=== PATIENT | female | born 1980 | race Caucasian/White ===

== ENCOUNTER 2024-01-03 10:29 | Observation (INO) ==
--- NOTE | 2023-12-13 09:06 | PAT Medication Instructions ---
Medication Instructions Date of Service December 13, 2023 Home Medications Medication Instructions Recorded cefdinir 300 mg capsule 300 mg PO BID 7 days #14 caps 12/08/23 albuterol sulfate 90 mcg/actuation aerosol inhaler 2 puff inhalation DIRECTE D PRN hydroxyzine HCl 10 mg tablet 10 mg PO TID PRN montelukast 10 mg tablet 10 mg PO QAM nitroglycerin 0.4 mg sublingual tablet 0.4 mg sublingual DIRECTED PRN omeprazole 40 mg capsule,delayed release 40 mg PO QAM tiotropium bromide 2.5 mcg/actuation mist for inhalation (Spiriva Respimat) 2 inh inhalation DAILY fluticasone 500 mcg-salmeterol 50 mcg/dose blistr powdr for inhalation (Advair Diskus) 1 inh inhalation BID naproxen sodium 220 mg tablet (Aleve) 440 mg PO DIRECTED PRN cefdinir 300 mg capsule 300 mg PO BID Thc Gummies 1 dose PO BID cyclobenzaprine 5 mg tablet 5 mg PO TID hydrocodone 7.5 mg-acetaminophen 325 mg tablet 1 tab PO TID Continue as directed tiotropium bromide 2.5 mcg/actuation mist for inhalation (Spiriva Respimat) 2 inh inhalation DAILY nitroglycerin 0.4 mg sublingual tablet 0.4 mg sublingual DIRECTED PRN(if needed) ASK your surgeon for instructions naproxen sodium 220 mg tablet (Aleve) 440 mg PO DIRECTED PRN STOP taking 24 hours before surgery Thc Gummies 1 dose PO BID Take morning of surgery With a small sip of water, OTHERWISE NOTHING TO EAT OR DRINK AFTER MIDNIGHT: albuterol sulfate 90 mcg/actuation aerosol inhaler 2 puff inhalation DIRECTED PRN(use if needed; please bring with you to hospital day of surgery if possible) hydroxyzine HCl 10 mg tablet 10 mg PO TID PRN(if needed) montelukast 10 mg tablet 10 mg PO QAM omeprazole 40 mg capsule,delayed release 40 mg PO QAM fluticasone 500 mcg-salmeterol 50 mcg/dose blistr powdr for inhalation (Advair Diskus) 1 inh inhalation BID cefdinir 300 mg capsule 300 mg PO BID cyclobenzaprine 5 mg tablet 5 mg PO TID hydrocodone 7.5 mg-acetaminophen 325 mg tablet 1 tab PO TID Take evening before surgery hydroxyzine HCl 10 mg tablet 10 mg PO TID PRN(if needed) fluticasone 500 mcg-salmeterol 50 mcg/dose blistr powdr for inhalation (Advair Diskus) 1 inh inhalation BID cefdinir 300 mg capsule 300 mg PO BID cyclobenzaprine 5 mg tablet 5 mg PO TID hydrocodone 7.5 mg-acetaminophen 325 mg tablet 1 tab PO TID Other Notes If you have any questions please call us at [phone] or [phone] or [phone] or [phone]
--- NOTE | 2023-12-15 14:42 | Anesthesiology Consultation ---
Date of Service December 15, 2023 Assessment & Plan (1) Encounter for pre-operative examination: - Check test AM DOS - Infectious disease screening: Per assessment on 12/10/23: No known infectious disease contacts or current Covid-related symptoms. No noted recent Covid positive test result. - Outpatient joint assessment: Pt currently scheduled for inpatient pathway. If surgeon requests review for outpatient joint pathway, patient is not recommended candidate for outpatient joint program from anesthesia standpoint. - Last seen by PCP 09/24/23: " Bridget presents for followup of her chronic medical conditions. She reports she is compliant with her medications.. She notes since her last appt she injured her knee, has an MRI scheduled soon, is going to have surgery for her meniscus soon.. is following with my raissay carole/onch [sic] for iron transfusions. she is also having high wbc and platelets.. Asthma.. stable at this time. no active exacerbation.. continue current medications.. Hx of NSTEMI.. not currently on statin or any bp meds. labs ordered.. Hyperlipidemia.. Reviewed measures to lower cholesterol aside from medication.. Please decrease/eliminate fried foods and red meat" - Case (including past cardiac history) reviewed with Dr. Holbrook. He feels patient okay to proceed with surgery as scheduled without further cardiac evaluation and/or testing prior to surgery from his perspective. Chart Review Chart Review: Acceptable Risk for Surgery (pending evaluation DOS) and Patient seen in Pre Admission Testing Teaching & Discussion Pre-Anesthesia Teaching/Discussion Notes: Instructed NPO after midnight before surgery,except medications with 15 cc of water. Medication instructions provided according to the PAT guidelines. History Surgery Operation Date: 01/03/24 13:40 Proposed Procedures p Left Total Knee Arthroplasty - Mamadou Jasmine, Height/Weight Height: 5 ft 2 in Weight: 137.9 kg Allergies Allergy/AdvReac Type Severity Reaction Status Date / Time tramadol Allergy Severe Difficulty Verified 12/10/23 15:27 Breathing gabapentin AdvReac Intermediate Loss of Verified 12/13/23 15:15 balance pantoprazole [From Protonix] AdvReac Intermediate Hives Verified 12/10/23 15:27 NSAIDS (Non-Steroidal AdvReac Unknown Avoid d/t Verified 12/13/23 15:15 Anti-Inflamma gastric bypass Medications Home Medications Medication Instructions Recorded Confirmed Last Taken albuterol sulfate 90 mcg/actuation 2 puff inhalation DIRECTED PRN 09/26/22 12/10/23 Unknown aerosol inhaler Shortness Of Breath hydroxyzine HCl 10 mg tablet 10 mg PO TID PRN Itching 09/26/22 12/10/23 03/29/23 montelukast 10 mg tablet 10 mg PO QAM 09/26/22 12/10/23 03/29/23 nitroglycerin 0.4 mg sublingual 0.4 mg sublingual DIRECTED PRN 09/26/22 12/10/23 Unknown tablet Chest Pain omeprazole 40 mg capsule,delayed 40 mg PO QAM 09/26/22 12/10/23 03/29/23 release tiotropium bromide 2.5 2 inh inhalation DAILY 09/26/22 12/10/23 03/29/23 mcg/actuation mist for inhalation (Spiriva Respimat) fluticasone 500 mcg-salmeterol 50 1 inh inhalation BID 02/17/23 12/10/23 03/29/23 mcg/dose blistr powdr for inhalation (Advair Diskus) naproxen sodium 220 mg tablet 440 mg PO DIRECTED PRN Migraine 02/17/23 12/10/23 02/17/23 12:00 (Aleve) Headache Thc Gummies 1 dose PO BID 12/10/23 12/10/23 Unknown cyclobenzaprine 5 mg tablet 5 mg PO TID 12/10/23 12/10/23 Unknown hydrocodone 7.5 mg-acetaminophen 1 tab PO TID 12/10/23 12/10/23 Unknown 325 mg tablet Past Medical History Medical History Anxiety Arthritis Asthma Chronic anemia Chronic obstructive pulmonary disease Fibromyalgia GERD (gastroesophageal reflux disease) History of non-ST elevation myocardial infarction (NSTEMI) 2020 Cath 2020: Angiographically normal coronary arteries. Per report, "It is possible patient had a superficial plaque erosion. Given her symptoms and troponin elevation." Hx of gastric ulcer Hx pulmonary embolism s/p bariatric surgery (was on blood thinner for 2-3 months) Migraine Morbid obesity with BMI of 50.0-59.9, adult PTSD (post-traumatic stress disorder) Exercise / Class Metabolic Activity III < 4 Walking/Shop/Light housework (Patient reports no CP or SOB with daily flight of stairs) Past Family History Family History Other No family history of adverse response to anesthesia Past Surgical History Surgical History H/O gastric bypass History of x1 History of cardiac cath 2020 ([facility]) Angiographically normal coronary arteries. Per report, "It is possible patient had a superficial plaque erosion. Given her symptoms and troponin elevation." History of esophagogastroduodenoscopy (EGD) History of tooth extraction Past Anesthesia History No Family Hx of Anesthesia Complications and Other (EGD told she needed to "keep receiving more medication" to keep her asleep) History of PONV No Hx of PONV and Hx of Motion Sickness Social History Smoking Status: Current every day smoker Smoking cigarettes per day: 15-20 cigs/day Do You Dip or Chew Tobacco: No Hx Alcohol Use: No Hx Substance Use: Yes substance use type: marijuana (THC gummies 2-3 times/day PRN pain) Review of Systems Recent UTI 11/2023- symptom resolution s/p abx completion. Patient denies chest pain, shortness of breath, dyspnea on exertion, fever, chills, cough, wheezing, palpitations. Physical Exam Vital Signs VITALS BP 128/85 P 95 TEMP 98.2 SP02 95%RA RESP 20 PHYSICAL Full cervical extension range of motion. Full TMJ range of motion. TMD 3 finger breaths Mallampati Score 3 Dentition: upper/lower full dentures Lungs: clear throughout to auscultation Cardiac: regular rate and rhythm, no murmurs noted Spine: normal Carotid arteries: negative bruit Extremities: no LE edema Lab Results Anesthesia Preop Results Results Anesthesia Widget: WBC 10.16 K/ul (4.8-10.8) 12/15/23 Hgb 15.2 g/dl (12.0-16.0) 12/15/23 Hct 47.9 % (37.0-47.0) H 12/15/23 Plt 366 K/uL (130-400) 12/15/23 Na 136 mmol/L (136-145) 12/08/23 K 4.3 mmol/L (3.5-5.1) 12/08/23 Cl 102 mmol/L (98-107) 12/08/23 CO2 28 mmol/L (21-32) 12/08/23 BUN 8 mg/dl (6-23) 12/08/23 Creat 0.87 mg/dl (0.6-1.2) 12/08/23 Glucose Level 99 mg/dl (70-99(Fasting)) 12/08/23 PT 9.9 Seconds (9.0-12.0) 12/15/23 PTT 28 Seconds (21-31) 12/15/23 INR 0.9 (0.9-1.1) 12/15/23 Urine Color Yellow 12/08/23 Urine Appearance Cloudy (Clear) A 12/08/23 Urine pH 6.0 (4.5-7.5) 12/08/23 Urine Specific [place] 1.011 (1.000-1.030) 12/08/23 Urine Protein Negative (Negative) 12/08/23 Urine Glucose (UA) Negative (Negative) 12/08/23 Urine Ketones Negative (Negative) 12/08/23 Urine Blood 3+ (Negative) H 12/08/23 Urine Nitrite Negative (Negative) 12/08/23 Urine Bilirubin Negative (Negative) 12/08/23 Urine Urobilinogen Negative (Negative) 12/08/23 Urine Leukocyte Esterase Trace (Negative) H 12/08/23 Urine WBC (Auto) 10-30 /hpf (0-5) H 12/08/23 Urine RBC (Auto) 0-4 /hpf (0-4) 12/08/23 Urine Hyaline Casts (Auto) 1-5 /lpf (0-5) 12/08/23 Urine Epithelial Cells (Auto) >30 /lpf (0-5) H 12/08/23 Urine Bacteria (Auto) 1+ (Negative) H 12/08/23 Urine Yeast Not Reportable 12/08/23 Blood Type O Positive 12/15/23 Antibody Screen NEGATIVE 12/15/23 Testing Laboratory Results Urine culture (12/08/23)- more than three types of organisms present, all high counts > rx'd cefdinir by [facility] Electrocardiogram Date: 12/15/23 NSR at 87bpm. "Normal ECG" Chest X-Ray Date: 12/15/23 FINDINGS: No pneumothorax. No pleural effusions. The heart is normal in size. No evidence for pulmonary edema. Left basilar linear density favors subsegmental atelectasis or scarring. There are low lung volumes. There is suggestion of old, healed left-sided rib fractures. No acute fractures identified. IMPRESSION: No acute process. Echocardiogram Date: 12/12/20 EF 60-65%. Wall motion is normal. No significant valvular disease. Cardiac Catheterization Date: 12/12/20 Angiographically normal coronary arteries. It is possible patient had a superficial plaque erosion. Given her symptoms and troponin elevation. Recommendation: Aspirin and Plavix for 1 month. Discontinue Plavix after 30 days and continue aspirin lifelong. Patient should also be on a statin.
--- NOTE | 2024-01-03 09:57 | History & Physical Bridge Note ---
Date of Service January 03, 2024 History & Physical Bridge Note I have examined the patient, reviewed the History & Physical and in the interval since the performance of the History & Physical I have noted the following changes of clinical significance: no changes noted
[~2024-01-03 10:29] MED LIST: BUPIVACAINE 0.5 % 5 MG/1 ML PF 10ML VIAL ONE; ROPIVACAINE 0.5% 5 MG/ML 30 ML VIAL ONE
[2024-01-03] MEDS: LR 500ML BOLUS, THEN 15ML/HR IV SCH (11:02)
[2024-01-03] MEDS: dexAMETHasone**PF** 10 MG/ML VIAL IV SCH (11:03)
[2024-01-03] MEDS: FAMOTIDINE 20 MG TAB PO SCH (11:03)
[2024-01-03] MEDS: ACETAMINOPHEN 500 MG TAB PO SCH ×2 (11:03→20:50)
[2024-01-03] MEDS: GABAPENTIN 300 MG CAP PO SCH (11:04)
[2024-01-03] MEDS: LR 60ML/HR IV SCH (11:04)
[2024-01-03] MEDS ORDERED: MIDAZOLAM HCL 1 MG/ML 2ML VIAL ONE (11:21)
[2024-01-03] MEDS ORDERED: fentaNYL citrate PF 100 MCG/2 ML VIAL ONE ×4 (11:21→13:55)
[2024-01-03 11:27] LABS: Pregnancy Test, Serum Negative (Negative)
[2024-01-03] MEDS: TRANEXAMIC ACID 1,000 MG **IV Pre-op IV SCH (11:49)
[2024-01-03] MEDS ORDERED: SUCCINYLCHOLINE CHLORIDE 20 MG/ML 10 ML VIAL IV ONE ×2 (12:19→13:39)
[2024-01-03] MEDS ORDERED: ONDANSETRON INJ 2 MG/ML 2 ML VIAL IV PRN ×2 (12:52→16:01)
[2024-01-03] MEDS ORDERED: ATROPINE SULFATE 0.1 MG/ML 10ML SYR IV PRN (12:52)
[2024-01-03] MEDS ORDERED: ePHEDrine sulfate 50 MG/ML AMP IV PRN (12:52)
[2024-01-03] MEDS: ROPIV 0.5% 246mg, Ketorolac 30mg, EPINEPHrine 0.5mg in NSS INFIL SCH (12:57)
[2024-01-03] MEDS: ORTHO JOINT ANESTHETIC ONE (12:57)
[2024-01-03] MEDS ORDERED: PROPOFOL IV EMULSION 10 MG/ML 20 ML VIAL IV ONE (13:02)
[2024-01-03] MEDS ORDERED: LIDOCAINE 2% 2 ML VIAL/AMP(20MG/ML) INFIL ONE (13:02)
[2024-01-03] MEDS ORDERED: ONDANSETRON INJ 2 MG/ML 2 ML VIAL ONE (13:02)
[2024-01-03] MEDS: TRANEXAMIC ACID 1,000 MG **IV Intra-op IV SCH (13:25)
--- NOTE | 2024-01-03 13:37 | Operative Report ---
PG Post Operative Report Pre & Post Diagnosis Operation Date: 01/03/24 13:40 Pre-Op Diagnosis: DJD Left Knee Post-Op Diagnosis: DJD Left Knee I identified the patient and participated in the time-out.: Yes Procedure Operation Date: 01/03/24 13:40 Actual Procedures p Left Total Knee Arthroplasty(Left) - Mamadou Jasmine DO Surgeon Mamadou Jasmine DO Creative Developer Mamadou Villatoro PA-C Estimated Blood Loss 30 Findings Consistent with Post-Op Diagnosis Specimens Left femoral tibial bone Description of Procedure Implants used: I used a Ozzy Persona total knee arthroplasty system with a size 7 standard PS femur, D tibia, 31 oval patella, and a size 12 CPS polyethylene bearing. All components were cemented in place with Biomet cement. Bridget arrived [facility] for the above procedure. She was seen in the preoperative holding area and the operative extremity was identified and signed. She was given a preoperative antibiotic, TXA, a spinal anesthetic and an adductor nerve block. She was taken back to the operating room and laid on the table in supine position. She was given basic sedation. The operative knee was then prepped and draped in sterile fashion. A timeout was done, and the patient and the operative extremity was properly identified. A midline incision was made directly over the patella. Dissection was taken down to the extensor mechanism. A medial parapatellar arthrotomy was used. The medial retinaculum was released and the fat pad was mostly excised. The knee was flexed and the ACL, PCL, and meniscus were removed. A drill was sent down the center of the femoral canal followed by an intramedullary rita. Off that rita a distal femoral cutting block was placed. 9 mm was resected off the distal femur at 5 of valgus. A posterior referencing AP sizing guide was then placed on the distal femur. The femur measured to be a size 7. 2 drill holes were placed in 3 of external rotation. A 4-in-1 cutting block was then impacted into place. Anterior, posterior, and chamfer cuts were then made. The proximal tibia was then exposed. An external tibial alignment guide was placed. A tibial cut guide was then anchored in place and the proximal tibia was then resected. The posterior aspect of the knee was then opened up and any additional meniscus fragments and osteophytes were removed. The tibia measured to be a size D. The tibial plate was then placed in the appropriate rotation and the tibia was drilled and punched. Trial components were then placed. I used a size 12 medial congruent polyethylene insert. The knee was brought through a full range of motion and felt to be stable. The peg holes for the femoral component were then drilled. The patella was then everted and 9 mm was resected off the posterior aspect of the patella. The patella measured to be a size 31 over. 3 peg holes were then drilled. A trial patella was placed. The knee was once again brought through a full range of motion and felt to be stable. Trial components were then removed. The surrounding soft tissues were injected with 100 cc of an orthopedic pain control cocktail. All components were then cemented into place with Biomet cement. The final polyethylene insert was then snapped into place. Once cement was dry the tourniquet was deflated. Hemostasis was obtained. A dilute betadyne lavage was then done for 3 minutes. The joint was then irrigated with normal saline solution. The medial parapatellar arthrotomy was then closed with #1 Vicryl suture. The skin was closed with 2-0 Vicryl, 3-0V lock suture, and wilmer. A soft compressive dressing was placed. She was then transferred to a hospital bed and taken to the postanesthesia care unit in stable condition. She tolerated the procedure well. Mamadou Villatoro PA-C, was present for the entire procedure. He was critical for patient positioning, prepping, draping, retraction exposure, wound closure and application of sterile dressing. I attest to the content of the Intraoperative Record and any orders documented therein. Any exceptions are noted below.
[2024-01-03] MEDS ORDERED: SUGAMMADEX SODIUM 200 MG/2 ML VIAL IV ONE (13:39)
[2024-01-03] MEDS ORDERED: ROCURONIUM BROMIDE 10 MG/ML 5 ML VIAL IV ONE (13:39)
[2024-01-03] MEDS: fentaNYL citrate PF 100 MCG/2 ML VIAL IV PRN (14:10)
[2024-01-03] MEDS: HYDROmorphone INJ 0.5 MG/0.5 ML SYR ONE (14:15)
[2024-01-03] MEDS: HYDROmorphone INJ 0.5 MG/0.5 ML SYR IV STA ×3 (14:45→16:07)
--- NOTE | 2024-01-03 14:56 | XRay Report ---
XR knee LT 1 or 2V routine CLINICAL HISTORY: Surgical Post Op TECHNIQUE: 2 views of the left knee were obtained. Comparison: Comparison is made to knee radiographs 09/07/2023 FINDINGS: Patient is status post total knee arthroplasty with expected postsurgical changes including soft tiss ue swelling and subcutaneous emphysema. No periarticular lucency or hardware fracture is seen. IMPRESSION: Expected postoperative appearance status post placement of total knee arthroplasty. ACT 112: Negative or not required by law. Electronically signed by: Bryson Hand M.D. 01/03/2024 2:54 PM
--- NOTE | 2024-01-03 14:56 | Anesthesiology Progress Note ---
Date of Service January 03, 2024 Anesthesia Post Procedure Vital Signs Vital Signs: Temp Pulse Pulse Resp BP Pulse Ox O2 Del Method 01/03/24 14:40 91 H 22 131/56 L 98 Oxymask 01/03/24 14:30 85 19 142/76 H 98 Oxymask 01/03/24 14:20 86 12 138/96 96 Oxymask 01/03/24 14:10 90 19 123/55 L 99 Oxymask 01/03/24 14:02 36.3 C L 86 16 154/121 H 99 Oxymask 01/03/24 11:00 37 C 108 H 22 191/108 H 96 Room Air 01/03/24 10:57 Room Air O2 Flow Rate 01/03/24 14:40 2 01/03/24 14:30 3 01/03/24 14:20 3 01/03/24 14:10 5 01/03/24 14:02 5 01/03/24 11:00 01/03/24 10:57 Pain Intensity Left Knee: Pain Intensity: 10 Transfer of Care Handoff Completed per policy Notes Mental Status: alert / awake / arousable Patient Amnestic to Procedure: Yes Nausea / Vomiting: adequately controlled Pain: improving with treatment Airway Patency, RR, SpO2: stable & adequate BP & HR: stable & adequate Hydration State: stable & adequate Anesthetic Complications: no major complications apparent
[2024-01-03] MEDS ORDERED: NITROGLYCERIN SL 0.4 MG/TAB TAB SL PRN (16:01)
[2024-01-03] MEDS ORDERED: hydrOXYzine HCl 10 MG TAB PO PRN (16:01)
[2024-01-03] MEDS ORDERED: NALOXONE HCL 0.4 MG/1 ML VIAL/CARP IV PRN (16:01)
[2024-01-03] MEDS ORDERED: MAGNESIUM HYDROXIDE SUSP 30 ML UDC PO PRN (16:01)
[2024-01-03] MEDS ORDERED: ALBUTEROL HFA 8 GM INHALER INH PRN (16:01)
[2024-01-03] MEDS ORDERED: METOCLOPRAMIDE HCL INJ 5 MG/ML 2 ML VIAL IV PRN (16:01)
[2024-01-03] MEDS ORDERED: bisacodyL 10 MG SUPP PR PRN (16:01)
[2024-01-03] MEDS: oxyCODONE HCL IR 5 MG TAB (IMMEDIATE RELEASE) PO PRN (16:25)
[2024-01-03] MEDS: SODIUM CHLORIDE 0.9% 1,000 ML IV SCH (16:27)
[2024-01-03] MEDS: KETOROLAC 30 MG/ML VIAL IV SCH (17:01)
[2024-01-03] MEDS: CYCLOBENZAPRINE HCL 5 MG TAB PO SCH (17:01)
[2024-01-03] MEDS: HYDROmorphone INJ 0.5 MG/0.5 ML SYR IV PRN (18:37)
[2024-01-03] MEDS: ceFAZolin 2000MG 2,000 MG/15 ML SYR IV SCH (20:42)
[2024-01-03] MEDS: ASPIRIN 81 MG ECTAB PO SCH (20:47)
[2024-01-03] MEDS: DOCUSATE SODIUM 100 MG CAP PO SCH (20:48)
[2024-01-03] MEDS: FLUTICASONE/VILANTEROL 100/25MCG 14 PUFFS/INHALER INH SCH (20:48)
[2024-01-03] MEDS: SENNA 8.6 MG TAB PO SCH (20:49)
--- NOTE | 2024-01-04 06:39 | Orthopedic Progress Note ---
Date of Service January 04, 2024 Assessment & Plan (1) Status post left knee replacement: Unfortunately she is having a lot of pain in the left knee. I told her this is not unexpected. She will probably be pretty sore with the knee for the next 2 weeks. She can be up and ambulating today with physical therapy. She is on Eliquis for DVT prophylaxis. She can be discharged home later today. She will follow-up with orthopedics in 2 weeks. Amrik Gill was seen and examined at bedside this morning. Unfortunately she is having a lot of pain in the left knee. She has been up and ambulating to the bathroom. She has no other complaints.. Review of Systems All systems reviewed & are unremarkable except as noted in HPI & below. Physical Exam On physical examination of the left knee, the dressing is clean and dry. Her leg is out full extension. She has active dorsiflexion plantarflexion of her left ankle.. Results & Data Results & Data Laboratory Results . Diagnostic Findings Postoperative x-rays of the left knee show the prosthesis to be in anatomic alignment without any evidence of fracture complication, or loosening.. PG Care Time/CCT Total # of Minutes Spent Total Time Spent with Patient: Total time spent is greater than 50% in coordination of care (as documented) at patient's floor/unit and/or counseling patient: Coding Level of Care Code 15154 Post Operative Follow-Up Diagnoses Status post left knee replacement Z96.652
--- NOTE | 2024-01-04 06:40 | Discharge Summary ---
Date of Service January 04, 2024 Principal Diagnosis Same as "Discharge Diagnosis" noted below under Discharge Instructions. Discharge Exam On physical examination of the left knee, the dressing is clean and dry. Her leg is out full extension. She has active dorsiflexion plantarflexion of her left ankle.. Discharge Data Procedures Performed Operation Date: 01/03/24 13:40 Actual Procedures p Left Total Knee Arthroplasty(Left) - Mamadou Jasmine DO Ordered Studies 01/03/24 05:00 US - OR guided needle placemen Routine Hospital Course (1) Status post left knee replacement: On January 03, 2024 Bridget arrived at [facility] and underwent a left knee replacement without complication. She had a general anesthetic. Postoperatively she was started on Eliquis for DVT prophylaxis and transferred to the general orthopedic floors. Unfortunately she was having a lot of pain on postop day #1. She was able to ambulate some with physical therapy. Her pain was controlled with narcotic pain medications. She was then discharged home. She will follow-up with orthopedics in 2 weeks. PG Care Time/CCT Total # of Minutes Spent Total Time Spent with Patient: Total time spent is greater than 50% in coordination of care (as documented) at patient's floor/unit and/or counseling patient: Discharge Plan Discharge Items Patient Disposition: Home - Self-Care Reason For Visit: DJD Left Knee Discharge Diagnosis: Left knee replacement Activity: Per Instructions section Non-emergency contact: Surgeon Call non-emergency contact if: your wound has increased redness and your wound has increased drainage Follow-up/Referrals: Shelby Carrizales CRNP [Primary Care Provider] - Diet: Regular Addtl Attending Provider Instructions: Activity and Therapy Recommendations: * If you are using [facility] then therapy will be provided at your home until they feel you have accomplished all of your goals. * If you are using [facility] then Physical Therapy will be provided until they feel you are ready to start Outpatient Physical Therapy. * If you are not using home therapy then Outpatient Physical Therapy should start about 3-5 days from your day of surgery. Therapy will last about 6-10 weeks * It is important not to put a pillow under your knee when you are relaxing or sleeping. It is just as important to make sure you are getting your knee perfectly straight as it is to regain your knee bend. * You were shown a series of exercises in the hospital. Do these exercises three times each day including the exercises you were shown in physical therapy. * Get up and walk several times each day. For the first four weeks, try not to stand or walk for more than one hour at a time. If you do stand or walk for more than one hour, you will not hurt anything, but your leg will likely swell. * As you feel comfortable, you may change from the walker or crutches to a cane and then to independent walking. Medications: * Narcotic You will likely be sent home from the hospital with a prescription for the narcotic pain medication that worked best throughout your stay. * Cefadroxil -take the antibiotic twice a day for 10 days to help with infection. * Eliquis -he will be on Eliquis 2.5 mg twice a day for 10 days following surgery. * Other medications may be prescribed for specific circumstances. If you have any questions, please call the office at . * Resume previous home medications unless otherwise instructed TEDs/Elastic Stockings: The white elastic stockings help limit swelling and prevent blood clots from forming in your legs.~ The more you wear them, the more they work. Wear them for six weeks. Dressing Care: The dressing can be changed after physical therapy on postop day #1. Daily dry dressing changes for a few days, especially if the incision is still draining some. If the incision is not draining then you may leave the wilmer open to air. If there is a little bit of drainage or if the wilmer are getting stuck on your clothing then cover the incision with a dry dressing. The wilmer will be removed at your 2 week follow-up appointment. Showering: You may shower 5 days from the day of surgery as long as the incision is no longer draining. You may shower with the wilmer exposed. Let soapy water run over the wilmer and pat them dry. Do not scrub or soak the incision. Things To Watch For: * Drainage from the incision site that occurs more than one week after your surgery. * Increased redness at the incision site. * Fever above 102 degrees Fahrenheit. * Unusual chest pain or shortness of breath. * Call [facility] at with any of the above problems Follow-Up Visit: Follow-up with Dr. Jasmine's PA (Mamadou Villatoro) 2-3 weeks after your day of surgery. He will remove your wilmer and answer any questions. If you have any additional questions or concerns, Dr Jasmine is usually in the office at the same time and will be available An appointment was probably scheduled when you signed-up for surgery in the office. If you have any questions call Office Instructions: More detailed instructions as well as Frequently Asked Questions were provided in a folder by our office when you signed-up for surgery. Please review these instructions when you get home. If you have any further questions or concerns, please feel free to call the office at [phone] Pending Studies at Discharge: No Stand-Alone Forms: My [facility] Medications and DC Order Prescriptions: New oxycodone 5 mg Tablet 5 - 10 mg PO Q4H PRN (Reason: pain) Qty: 60 0RF cefadroxil 500 mg capsule 500 mg PO BID 10 Days Qty: 20 0RF Eliquis 2.5 mg tablet 2.5 mg PO BID Qty: 20 0RF Continued (DME) [facility] [place] See Rx Instructions .MEDSUPPLY Qty: 1 0RF Rx Instructions: As directed omeprazole 40 mg capsule,delayed release(DR/EC) 40 mg PO QAM nitroglycerin 0.4 mg tablet, sublingual 0.4 mg sublingual DIRECTED PRN (Reason: Chest Pain) montelukast 10 mg tablet 10 mg PO QAM albuterol sulfate 90 mcg/actuation HFA aerosol inhaler 2 puff INHALATION DIRECTED PRN (Reason: Shortness Of Breath) hydroxyzine HCl 10 mg tablet 10 mg PO TID PRN (Reason: Itching) Spiriva Respimat 2.5 mcg/actuation mist 2 inh INHALATION DAILY naproxen sodium [Aleve] 220 mg Tablet 440 mg PO DIRECTED PRN (Reason: Migraine Headache) fluticasone propion-salmeterol [Advair Diskus] 500-50 mcg/dose Blister With Device 1 inh INHALATION BID cyclobenzaprine 5 mg Tablet 5 mg PO TID Thc Gummies 1 dose PO BID Discontinued hydrocodone-acetaminophen 7.5-325 mg Tablet 1 tab PO TID Discharge Orders: Discharge Order (Routine); Ordered 01/04/24 Ordered By: Mamadou Jasmine Admission Data Admit Date/Time: 01/03/24 13:56 Attending Provider: Mamadou Jasmine Admit Provider: Mamadou Jasmine Primary Care Provider: Shelby Carrizales
[2024-01-04] MEDS: dexAMETHasone 4 MG TAB PO SCH (08:23)
[2024-01-04] MEDS: OMEPRAZOLE 20 MG CAPCR PO SCH (08:25)
[2024-01-04] MEDS: MULTIVITAMIN TAB PO SCH (08:25)
[2024-01-04] MEDS: MONTELUKAST SODIUM 10 MG TABLET PO SCH (08:25)
[2024-01-04] MEDS: UMECLIDINIUM BROMIDE 62.5MCG/BLISTER 7 PUFFS/INHALER INH SCH (08:26)
[2024-01-04] MEDS: APIXABAN 2.5 MG TAB PO SCH (08:28)
[2024-01-04] MEDS ORDERED: NON-FORMULARY MEDICATION (Omeprazole 40 mg capsule,delayed release(DR/EC)) PO SCH (09:00)
== END 2024-01-04 11:07 | disposition home health service (06) ==
LOC: ASU 10:29 → 3E 10:29